=== PATIENT | female | born 1945 | race Caucasian/White ===

== ENCOUNTER 2019-09-14 15:25 | Observation (INO) | payer MEDICARE ==
[2019-09-14] MEDS ORDERED: Ondansetron PF 4 MG/2 ML Vial ONE ×3 (15:33→20:52)
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
--- NOTE | 2019-09-14 15:55 | CT ---
CT BRAIN WITHOUT CONTRAST: HISTORY: Trauma, headache FINDINGS: No evidence of acute infarct, hemorrhage, midline shift or abnormal extra-axial fluid collections is seen. The ventricular size is appropriate and the basilar cisterns are patent. The bony calvarium is intact. The visualized paranasal sinuses and mastoid air cells are well aerated. Is a small scalp contusion in the left frontal region. IMPRESSION: No CT evidence of acute intracranial process. Discussed over the telephone with ER physician Dr. Kurt Hightower at 3:52 PM
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
[2019-09-14 16:22] LABS: #Eosinphils 0.2 thou/uL (0.0-0.7); #Lymphocytes 1.9 thou/uL (1.20-3.40); #Monocytes 0.7 thou/uL (0.11-0.59); #Neutrophils 8.8 thou/uL (1.40-6.50); %Basophils 0.4 % (0.0-1.0); %Eosinophils 1.5 % (0.0-10.0); %Lymphocytes 16.1 % (21.0-51.0); Hemoglobin 13.1 g/dL (12.0-16.0); Mean Corpuscular HGB CONC 32.8 g/dL (32.0-36.0); Mean Corpuscular Hemoglobin 27.6 pg (27.0-31.0); Mean Corpuscular Volume 84.2 fL (78.0-98.0); Mean Platelet Volume 8.1 fL (7.4-10.4); Platelet Count 222 thou/uL (130-400); RBC Distribution Width 13.7 % (11.5-14.5); Red Blood Cell (RBC) Count 4.77 mill/uL (4.20-5.40); White Blood Cell (WBC) Count 11.6 thou/uL (4.8-10.8)
[2019-09-14] MEDS ORDERED: Morphine 4 MG/ML VIAL ONE (16:27)
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
[2019-09-14 16:42] LABS: ALT (SGPT) 16 U/L (8-55); AST (SGOT) 24 U/L (5-34); Albumin 3.8 g/dL (3.4-4.8); Alkaline Phosphatase 101 U/L (40-110); Anion Gap 15 mmol/L (10-20); BUN (Urea Nitrogen) 15 mg/dL (9.8-20.1); Bilirubin, Total 0.4 mg/dL (0.2-1.2); Calc. Creatinine Clearance 0 mL/min (70-130); Calcium 8.7 mg/dL (7.8-10.44); Carbon Dioxide 22 mmol/L (23-31); Chloride 103 mmol/L (98-107); Estimated GFR-MDRD 71; Globulin 2.5 g/dL (2.4-3.5); Glucose 114 mg/dL (83-110); Potassium 4.3 mmol/L (3.5-5.1); Protein, Total 6.3 g/dL (6.0-8.3); Sodium 136 mmol/L (136-145)
[2019-09-14] MEDS ORDERED: Famotidine 20 MG TAB ONE (18:00)
[2019-09-14] MEDS ORDERED: Lidocaine 1% w/Epinephrine 1:100K 20 ML VIAL ONE (19:41)
[2019-09-14] MEDS ORDERED: Promethazine HCl 25 MG/ML VIAL IVPB PRN (20:41)
[2019-09-14] MEDS ORDERED: Morphine 2 MG/ML SYRINGE SLOW IVP PRN (20:41)
[2019-09-14] MEDS ORDERED: Dextrose 5% in Water 1,000 ML IV PRN (20:41)
[2019-09-14] MEDS ORDERED: hydrALAZINE 20 MG/ML VIAL SLOW IVP PRN (20:41)
[2019-09-14] MEDS ORDERED: Dextrose 50% Abboject 50 ML SYRINGE SLOW IVP PRN (20:41)
[2019-09-14] MEDS ORDERED: Ondansetron PF 4 MG/2 ML Vial IVP PRN (20:41)
[2019-09-14] MEDS ORDERED: Cyclobenzaprine 10 MG TAB PO PRN (20:45)
[2019-09-14] MEDS ORDERED: traMADol HCl 50 MG TAB PO PRN ×2 (20:45)
[2019-09-14] MEDS ORDERED: Morphine 2 MG/ML SYRINGE ONE (20:51)
[2019-09-14] MEDS ORDERED: Meclizine HCl 25 MG TAB ONE (20:52)
[2019-09-14] MEDS ORDERED: Famotidine 20 MG TAB PO SCH (21:00)
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
[2019-09-14 22:43] VITALS: BMI 31.0
[2019-09-14] MEDS: Acetaminophen 500 MG TAB PO SCH (23:00)
[2019-09-14] MEDS: Ibuprofen 600 MG TAB PO SCH (23:22)
[2019-09-14] MEDS: Senokot S 8.6-50 MG TAB PO SCH (23:22)
[2019-09-14] MEDS: Gabapentin 300 MG CAP PO SCH (23:23)
[2019-09-15] MEDS: Acetaminophen 500 MG TAB PO SCH ×4 (03:53→20:42)
[2019-09-15 05:10] LABS: #Lymphocytes 1.3 thou/uL (1.20-3.40); #Monocytes 0.9 thou/uL (0.11-0.59); #Neutrophils 9.2 thou/uL (1.40-6.50); %Basophils 0.1 % (0.0-1.0); %Eosinophils 0.2 % (0.0-10.0); %Lymphocytes 11.7 % (21.0-51.0); %Monocytes 8.2 % (0.0-10.0); %Neutrophils 79.8 % (42.0-75.0); Hemoglobin 11.7 g/dL (12.0-16.0); Mean Corpuscular HGB CONC 33.1 g/dL (32.0-36.0); Mean Corpuscular Hemoglobin 27.6 pg (27.0-31.0); Mean Corpuscular Volume 83.2 fL (78.0-98.0); Mean Platelet Volume 8.4 fL (7.4-10.4); Platelet Count 298 thou/uL (130-400); RBC Distribution Width 13.6 % (11.5-14.5); Red Blood Cell (RBC) Count 4.26 mill/uL (4.20-5.40); White Blood Cell (WBC) Count 11.5 thou/uL (4.8-10.8)
[2019-09-15] MEDS: Ibuprofen 600 MG TAB PO SCH (05:30)
[2019-09-15 05:40] LABS: Anion Gap 13 mmol/L (10-20); BUN (Urea Nitrogen) 16 mg/dL (9.8-20.1); Calc. Creatinine Clearance 88 mL/min (70-130); Calcium 8.8 mg/dL (7.8-10.44); Carbon Dioxide 23 mmol/L (23-31); Chloride 105 mmol/L (98-107); Estimated GFR-MDRD 75; Glucose 110 mg/dL (83-110); Magnesium 2.6 mg/dL (1.6-2.6); Phosphorus 4.6 mg/dL (2.3-4.7); Potassium 4.8 mmol/L (3.5-5.1); Sodium 136 mmol/L (136-145)
[2019-09-15] MEDS: Gabapentin 300 MG CAP PO SCH ×3 (08:39→20:43)
[2019-09-15] MEDS: Metoprolol Tartrate 50 MG TAB PO SCH (08:39)
[2019-09-15] MEDS: Senokot S 8.6-50 MG TAB PO SCH ×2 (08:39→20:42)
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
[2019-09-15] MEDS ORDERED: Ibuprofen 600 MG TAB PO PRN (08:45)
[2019-09-15] MEDS ORDERED: Prevnar 13-Val Conj/PF 0.5 ML SYRINGE IM ONE (09:00)
[2019-09-15] MEDS ORDERED: Polyethylene Glycol 3350 17 GM Packet PO SCH (09:00)
[2019-09-15] MEDS ORDERED: Scopolamine 1.5 mg/72 hour Patch TD SCH (09:30)
[2019-09-15] MEDS: traMADol HCl 50 MG TAB PO SCH ×3 (10:15→20:50)
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
[2019-09-15] MEDS ORDERED: Enoxaparin Sodium 40 MG/0.4 ML SYRINGE SC SCH (21:00)
[2019-09-15] MEDS ORDERED: Famotidine 20 MG TAB PO SCH ×2 (21:00)
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
[2019-09-16] MEDS: Acetaminophen 500 MG TAB PO SCH ×3 (03:01→16:23)
[2019-09-16] MEDS: traMADol HCl 50 MG TAB PO SCH ×3 (03:01→16:23)
[2019-09-16] MEDS ORDERED: Non-Formulary Item 1 EACH (Umeclidinium Brm/Vilanterol Tr [Anoro Ellipta] 1 PUFF) INH SCH (09:00)
[2019-09-16] MEDS ORDERED: Bacitracin 1 PK TOP SCH (09:00)
[2019-09-16] MEDS: Gabapentin 300 MG CAP PO SCH ×2 (09:12→16:23)
[2019-09-16] MEDS: Metoprolol Tartrate 50 MG TAB PO SCH (09:12)
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
[2019-09-16 15:56] VITALS: BP 114/67; TEMP 98.3
== END 2019-09-16 16:48 ==
LOC: ERS 15:25 → SURG A 20:47
PROVIDERS: ADMIT Surgery; ATTEND Surgery
DX: S22.42XA Multiple fractures of ribs, left side, initial encounter for closed fracture (principal); S06.0X9A Concussion with loss of consciousness of unspecified duration, initial encounter; S01.81XA Laceration without foreign body of other part of head, initial encounter; S60.511A Abrasion of right hand, initial encounter; S40.812A Abrasion of left upper arm, initial encounter; G89.11 Acute pain due to trauma; J44.9 Chronic obstructive pulmonary disease, unspecified; I10 Essential (primary) hypertension; K22.70 Barrett's esophagus without dysplasia; J18.9 Pneumonia, unspecified organism; Z87.891 Personal history of nicotine dependence; Z79.899 Other long term (current) drug therapy; Z88.0 Allergy status to penicillin; V49.40XA Driver injured in collision with unspecified motor vehicles in traffic accident, initial encounter
CPT/HCPCS: 70450; 71045 ×2; 71260; 72125; 74177; 80048; 80053; 83735; 84100; 85025 ×2; 94640 ×4; 96365; 96372; 96375; 96376 ×2; 97116; 97139 ×4; 99285; G0378 ×4; 36415; G0390; J1650; J2270; J2405; J3370; J7620; J8597; L0120

== ENCOUNTER 2019-10-03 14:47 | Outpatient (CLI) | payer MEDICARE ==
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
== END 2019-10-03 14:48 | disposition home or self-care (01) ==
LOC: BICRAD 14:47
PROVIDERS: ATTEND Physician Assistant
DX: S22.42XD Multiple fractures of ribs, left side, subsequent encounter for fracture with routine healing (principal); J90 Pleural effusion, not elsewhere classified; Q25.46 Tortuous aortic arch
CPT/HCPCS: 71046

== ENCOUNTER 2021-12-27 10:39 | Outpatient (CLI) | payer MEDICARE | END 2021-12-27 10:40 | disposition home or self-care (01) | LOC: BICULT 10:39 | PROVIDERS: ATTEND Family Medicine | DX: R10.2 Pelvic and perineal pain (principal); R10.32 Left lower quadrant pain | CPT/HCPCS: 76856 ==